=== PATIENT | male | born 1965 | race Caucasian/White ===

== ENCOUNTER → 2018-03-04 | Outpatient (CLI) | payer OTHER ==
[~2018-03-04] MED LIST: DAPA10TA PO; DIPH1TAB PO; DULO60CA63 PO; GABA-531 PO; HYDR10SY17 PO; IBUP-2077 PO; INSU10VI3 SQ; KETO120S3 TP; LOSA1TAB37 PO; MECL-111 PO; MELO-108 PO; METO-391 PO; OMEP40CA37 PO; PHEN16.233 PO; TOPI100T37 PO; VITA1CAP85 PO; [UNRECOGNIZED DRUG - CODE] PO
== END | disposition home or self-care (01) ==
LOC: OIH 09:03
PROVIDERS: ATTEND Neurological Surgery
DX: M43.22 Fusion of spine, cervical region (principal)
CPT/HCPCS: 72040

== ENCOUNTER → 2018-04-19 | Outpatient (CLI) | payer OTHER | END | disposition home or self-care (01) | LOC: OIH 07:55 | PROVIDERS: ATTEND Neurological Surgery | DX: M43.22 Fusion of spine, cervical region (principal) | CPT/HCPCS: 72040 ==

== ENCOUNTER → 2018-07-31 | Outpatient (CLI) | payer BC, OTHER ==
[~2018-07-31] MED LIST changes: +CHOL200016 PO; +GADODIAMIDE 10 MMOL/20 ML ML IV ONE; -[UNRECOGNIZED DRUG - CODE] PO
== END | disposition home or self-care (01) ==
LOC: RAH 07:58
PROVIDERS: ATTEND Neurological Surgery
DX: M47.22 Other spondylosis with radiculopathy, cervical region (principal); M48.02 Spinal stenosis, cervical region
CPT/HCPCS: 72156; A9579

== ENCOUNTER → 2019-01-17 | Outpatient (CLI) | payer BC, OTHER ==
[~2019-01-17] MED LIST changes: -DULO60CA63 PO; +DULO60CA64 PO; -GADODIAMIDE 10 MMOL/20 ML ML IV ONE
== END | disposition home or self-care (01) ==
LOC: RAH 08:04
PROVIDERS: ATTEND Internal Medicine Cardiovascular Disease
DX: M51.36 Other intervertebral disc degeneration, lumbar region (principal); M47.817 Spondylosis without myelopathy or radiculopathy, lumbosacral region; M48.061 Spinal stenosis, lumbar region without neurogenic claudication
CPT/HCPCS: 72148